=== PATIENT | female | born 1965 | race Caucasian/White ===

== ENCOUNTER 2017-02-07 18:30 | Emergency (ER) | payer OTHER ==
[~2017-02-07 18:30] MED LIST: ALEVE220 MG PO; FUROSEMIDE10 MG/M1 PO; K-DUR20 MEQ PO
[2017-02-07 19:00] LABS: BASOPHILS 0.4 % (0-2); EOSINOPHILS 3.1 % (0-7); HEMATOCRIT 40.2 % (36.0-48.0); HEMOGLOBIN 13.9 g/dL (12-16); LYMPHOCYTES 47.7 % (15-50); MCH 31.6 pg (26.0-34.0); MCHC 34.6 g/dL (31.0-37.0); MCV 91.4 fL (80.0-100.0); MEAN PLATELET VOLUME 9.6 fL (7.4-10.4); MONOCYTES 6.5 % (2-11); NEUTROPHILS 42.3 % (40-80); RDW 12.9 % (11.5-14.5); WBC 5.5 10x3/uL (4.8-10.8)
[2017-02-07 19:03] LABS: PLATELET COUNT 195 10x3/uL (130-400)
[2017-02-07 19:14] LABS: ALBUMIN 3.4 g/dL (3.4-5.0); ALKALINE PHOSPHATASE 73 U/L (46-116); ALT (SGPT) 25 U/L (10-68); CALC OSMOLALITY 283 mosm/kg (275-300); CALCIUM 9.2 mg/dL (8.5-10.1); CARBON DIOXIDE 26.5 mmol/L (21.0-32.0); CHLORIDE - SERUM 105 mmol/L (98-107); CREATININE - SERUM 0.9 mg/dL (0.6-1.3); GLUCOSE 114 mg/dL (74-106); POTASSIUM - SERUM 3.6 mmol/L (3.5-5.1); PROTEIN - SERUM 6.8 g/dL (6.4-8.2); SODIUM 141 mmol/L (136-145); UREA NITROGEN 17 mg/dL (7-18); eGFR NON AFRICAN AMERICAN 69 mL/min (90-120)
[2017-02-07 19:26] LABS: CHOL - HDL RATIO 4.3 ratio (2.3-4.1); CHOLESTEROL, TOTAL 222 mg/dL (0-200); CKMB 0.6 U/L (0.0-3.6); CREATINE KINASE 113 UL (21-215); HDL CHOLESTEROL 52 mg/dL (32-96); LDL CHOLESTEROL 138 mg/dL (0-100); LDL-HDL RATIO 2.7 ratio (1.5-3.5); TRIGLYCERIDE 164 mg/dL (30-200); TROPONIN-I < 0.017 ng/mL (0.000-0.060)
== END 2017-02-07 21:25 | disposition home or self-care (01) ==
LOC: D.ER 18:30
PROVIDERS: Emergency Medicine
DX: K21.9 Gastro-esophageal reflux disease without esophagitis (principal); R07.9 Chest pain, unspecified

== ENCOUNTER 2018-11-28 13:00 | Emergency (ER) | payer MEDICAID ==
[~2018-11-28] VITALS: Ht 157.5 cm; Wt 112.3 kg
[2018-11-28 13:11] VITALS: Ht 157.5 cm; Wt 112.3 kg
[2018-11-28 14:05] LABS: BASOPHILS 0.3 % (0-2); EOSINOPHILS 1.1 % (0-7); HEMATOCRIT 42.4 % (36.0-48.0); HEMOGLOBIN 15.3 g/dL (12-16); IMMATURE GRANULOCYTES 0.1 % (0-5); MCH 32.3 pg (26.0-34.0); MCHC 36.1 g/dL (31.0-37.0); MCV 89.5 fL (80.0-100.0); MEAN PLATELET VOLUME 9.4 fL (7.4-10.4); NEUTROPHILS 65.5 % (40-80); PLATELET COUNT 196 10x3/uL (130-400); RBC 4.74 10x6/uL (4.00-5.40); WBC 7.6 10x3/uL (4.8-10.8)
[2018-11-28 14:23] LABS: ALBUMIN 3.4 g/dL (3.4-5.0); ALKALINE PHOSPHATASE 79 U/L (46-116); ALT (SGPT) 16 U/L (10-68); AMYLASE - SERUM 41 U/L (25-115); BILIRUBIN - TOTAL 0.65 mg/dL (0.2-1.3); CALC OSMOLALITY 281 mosm/kg (275-300); CARBON DIOXIDE 27.7 mmol/L (21.0-32.0); CHLORIDE - SERUM 105 mmol/L (98-107); CREATININE - SERUM 0.8 mg/dL (0.6-1.3); GLUCOSE 102 mg/dL (74-106); LIPASE 196 U/L (73-393); POTASSIUM - SERUM 3.9 mmol/L (3.5-5.1); PROTEIN - SERUM 7.1 g/dL (6.4-8.2); SODIUM 141 mmol/L (136-145); TROPONIN-I < 0.017 ng/mL (0.000-0.060); UREA NITROGEN 16 mg/dL (7-18); eGFR NON AFRICAN AMERICAN 79 mL/min (90-120)
[2018-11-28 14:32] LABS: APPEARANCE CLOUDY (CLEAR); BACTERIA FEW /hpf (NONE SEEN); BILIRUBIN NEGATIVE (NEGATIVE); COLOR AMBER (YELLOW); EPITHELIAL CELLS 0-5 /hpf (0-5); GLUCOSE NEGATIVE (NEGATIVE); KETONE NEGATIVE (NEGATIVE); NITRITE NEGATIVE (NEGATIVE); PROTEIN 1+ mg/dL (NEGATIVE); RED CELLS - URINE >50 /hpf (0-5); SPECIFIC GRAVITY 1.025 (1.005-1.020); WHITE CELLS - URINE 0-5 /hpf (0-5)
[2018-11-28] MEDS ORDERED: MACROBID100 MG PO (15:05)
[2018-11-28] MEDS ORDERED: EC-NAPROSYN500 MG PO (15:05)
[2018-11-28 15:15] VITALS: BP 128/84
== END 2018-11-28 15:15 | disposition home or self-care (01) ==
LOC: D.ER 13:00
PROVIDERS: Family Medicine
DX: N39.0 Urinary tract infection, site not specified (principal); R31.9 Hematuria, unspecified

== ENCOUNTER → 2019-08-26 11:40 | Outpatient (CLI) | payer MEDICAID ==
[2018-11-28 13:11] VITALS: BMI 45.3
[~2019-08-26 11:40] MED LIST changes: +EC-NAPROSYN500 MG PO; +MACROBID100 MG PO
== END | disposition home or self-care (01) ==
LOC: D.US 11:30
PROVIDERS: ATTEND Family Medicine
DX: M79.605 Pain in left leg (principal)